=== PATIENT | male | born 1995 | race Caucasian/White ===

== ENCOUNTER 2017-12-25 21:52 | Inpatient (IN) | payer BC ==
[2017-12-25] MEDS ORDERED: LORazepam 2 MG/ML SDV IVPUSH ONE (22:42)
[2017-12-25] MEDS ORDERED: Thiamine 100 MG Tab PO ONE (22:42)
[2017-12-25] MEDS ORDERED: Folic Acid 1 MG Tab PO ONE (22:42)
[2017-12-25] MEDS ORDERED: Sodium Chloride 0.9% 1,000 ML IV SCH (22:45)
--- NOTE | 2017-12-25 22:53 | EDM.PDOC ---
ED HPI GENERAL MEDICAL PROBLEM - General Chief Complaint: Drug or Alcohol Abuse Stated Complaint: would like to detox, possible suicidal Time Seen by Provider: 12/25/17 22:25 Source of Information: Reports: Patient History Limitations: Reports: No Limitations - History of Present Illness INITIAL COMMENTS - FREE TEXT/NARRATIVE: Patient presents this evening with complaints of alcohol withdrawals. He states he last drank Saturday. He states he drinks about 1 L of fireball whiskey on a daily basis. He states that he has been day drinking since he was about the age of 16. By his own admission he has a history of depression and anxiety and is not medicated for either. He does admit to smoking marijuana to help him to deal with his acute anxiety attacks. He does also state that lately he's been thinking that maybe he would be better off not living, but also then states he doesn't have a plan for suicide nor does he have access to any firearms. He is wanting to be admitted inpatient for what withdrawals as well as wanting to have something for his anxiety. He does have shakes, and is anxious. He has no other complaints at this time. He is currently not taking any medications nor does he have any allergies. He does state that at some point he was taking Klonopin for anxiety attacks. He also does state that his parents have somewhat disregarded his complaints of alcoholism. He states the have kind of just told him that he is a college student and its normal for college students to drink. Onset: Gradual Duration: Intermittent - Related Data Allergies Allergy/AdvReac Type Severity Reaction Status Date / Time No Known Allergies Allergy Verified 12/25/17 23:02 Home Meds: Home Meds . [No Known Home Meds] 12/25/17 [History] Past Medical History - Past Health History Medical/Surgical History: Denies Medical/Surgical History Psychiatric History: Reports: Anxiety - Past Surgical History Musculoskeletal Surgical History: Reports: Other (See Below) Social & Family History - Tobacco Use Second Hand Smoke Exposure: No - Alcohol Use Days Per Week of Alcohol Use: 0 ED ROS GENERAL - Review of Systems Review Of Systems: See Below Constitutional: Reports: No Symptoms HEENT: Reports: No Symptoms Respiratory: Reports: No Symptoms Cardiovascular: Reports: No Symptoms Endocrine: Reports: No Symptoms GI/Abdominal: Reports: No Symptoms : Reports: No Symptoms Musculoskeletal: Reports: No Symptoms Skin: Reports: No Symptoms Neurological: Reports: Tremors Psychiatric: Reports: Anxiety Hematologic/Lymphatic: Reports: No Symptoms Immunologic: Reports: No Symptoms ED EXAM, GENERAL - Physical Exam Exam: See Below Exam Limited By: No Limitations General Appearance: Alert, WD/WN, Anxious Eye Exam: Bilateral Eye: EOMI, PERRL Ears: Normal TMs Head: Atraumatic, Normocephalic Neck: Normal Inspection, Supple, Non-Tender, Full Range of Motion Respiratory/Chest: No Respiratory Distress, Lungs Clear, Normal Breath Sounds, No Accessory Muscle Use, Chest Non-Tender Cardiovascular: Normal Peripheral Pulses, Regular Rate, Rhythm, No Edema, No Gallop, No JVD, No Murmur, No Rub GI/Abdominal: Normal Bowel Sounds, Soft, Non-Tender, No Organomegaly, No Distention, No Abnormal Bruit, No Mass Extremities: Normal Inspection, Normal Range of Motion, Non-Tender, Normal Capillary Refill, No Pedal Edema Neurological: Alert, Oriented, CN II-XII Intact, Normal Cognition, Normal Gait, Normal Reflexes, No Motor/Sensory Deficits Psychiatric: Anxious Skin Exam: Warm, Dry, Intact, Normal Color, No Rash Lymphatic: No Adenopathy Course - Re-Assessments/Exams Free Text/Narrative Re-Assessment/Exam: 12/25/17 23:30 Will admit to acute to [facility]. He has been contacted and will see him in the AM Departure - Departure Time of Disposition: 23:58 Disposition: Admitted As Inpatient 66 Condition: Good Clinical Impression: Alcohol withdrawal syndrome, Anxiety EtOH dependence Qualifiers: Substance use status: unspecified alcohol-induced disorder Qualified Code(s): F10.29 - Alcohol dependence with unspecified alcohol-induced disorder - Discharge Information Referrals: PCP,Unknown [Ordering Only Provider] - Forms: ED Department Discharge - Problem List & Annotations (1) EtOH dependence SNOMED Code(s): 94878473 Code(s): F10.20 - ALCOHOL DEPENDENCE, UNCOMPLICATED Status: Acute Priority: Medium Current Visit: Yes Qualifiers: Substance use status: in withdrawal Complication of substance-induced condition: uncomplicated Qualified Code(s): F10.230 - Alcohol dependence with withdrawal, uncomplicated (2) Depression SNOMED Code(s): 55291323 Code(s): F32.9 - MAJOR DEPRESSIVE DISORDER, SINGLE EPISODE, UNSPECIFIED Status: Acute Priority: Medium Current Visit: No Qualifiers: Depression Type: unspecified Qualified Code(s): F32.9 - Major depressive disorder, single episode, unspecified (3) Anxiety SNOMED Code(s): 81733562 Code(s): F41.9 - ANXIETY DISORDER, UNSPECIFIED Status: Acute Priority: Medium Current Visit: Yes (4) Alcohol withdrawal syndrome SNOMED Code(s): 536205541 Code(s): F10.239 - ALCOHOL DEPENDENCE WITH WITHDRAWAL, UNSPECIFIED Status: Acute Priority: Medium Current Visit: Yes Qualifiers: Complication of substance-induced condition: uncomplicated Qualified Code(s ): F10.230 - Alcohol dependence with withdrawal, uncomplicated - Problem List Review Problem List Initiated/Reviewed/Updated: Yes - Assessment/Plan Assessment:: Anxiety Alcohol withdrawal syndrome Plan: 1. Anxiety provide prn ativan start on zoloft for anxiety and depression 2. Alcohol withdrawal hydration oral thiamine and folic acid CIWAA protocol Labs drawn for electrolyte disturbance social consultation oral nutrition
[2017-12-25] MEDS ORDERED: Ondansetron 4 MG Tab.DIS PO PRN (23:34)
[2017-12-25 23:44] LABS: CHLORIDE,CL 104 mmol/L (98-107); SODIUM,NA 144 mmol/L (136-145)
[2017-12-26] MEDS: Lactated Ringers 1,000 ML IV SCH ×4 (00:12→22:02)
[2017-12-26] MEDS: LORazepam 2 MG/ML SDV IVPUSH PRN ×9 (00:25→22:07)
[2017-12-26] MEDS: Sodium Chloride 0.9% 10 ML Syringe FLUSH PRN ×2 (01:30→08:05)
[2017-12-26 07:42] LABS: CHLORIDE,CL 106 mmol/L (98-107); SODIUM,NA 145 mmol/L (136-145)
[2017-12-26] MEDS: Folic Acid 1 MG Tab PO SCH (07:47)
[2017-12-26] MEDS ORDERED: Enoxaparin 30 MG/0.3 ML Syringe SUBCUT SCH (08:00)
[2017-12-26] MEDS ORDERED: Sertraline 25 MG Tab PO SCH (08:00)
[2017-12-26] MEDS: Thiamine 100 MG Tab PO SCH (08:05)
[2017-12-26] MEDS: Pantoprazole 40 MG Vial IVPUSH SCH ×2 (08:06→19:48)
[2017-12-26] MEDS ORDERED: hydrOXYzine HCl 25 MG Tab PO PRN (08:15)
[2017-12-26] MEDS: Acetaminophen 325 MG Tab PO PRN ×2 (10:32→22:08)
--- NOTE | 2017-12-26 10:32 | PCM.HP ---
H&P History of Present Illness - General Date of Service: 12/26/17 Admit Problem/Dx: Admission Diagnosis/Problem Admission Diagnosis/Problem Alcohol withdrawal delirium Acute alcohol intoxication Depression with Anxiety Source of Information: Patient, Old Records, RN, RN Notes Reviewed History Limitations: Reports: No Limitations - History of Present Illness Initial Comments - Free Text/Narative: This patient is seen and examined by me as an [facility] provider. Patient presented to the emergency room at [facility] last evening requesting inpatient admission for acute alcohol withdrawals. According to the patient, the patient has a very long-standing history of alcohol abuse, depression and anxiety. The patient states that he began social drinking when he was in the sixth grade. The patient states his heavy alcohol use did not start until November 23, 2011 due to the of his cousin. The patient states that he has always been a hard liquor drinker. The patient states he does not consume any beer. The patient denies any cigarette smoking. The patient admits to using marijuana on a daily basis. The patient states that his last drink was Saturday. The patient states up until then he was drinking a liter of hard liquor daily for the past 8 days. The patient stopped drinking cold turkey. The patient states the reason for presenting to the emergency room was for the alcohol withdrawal symptoms and he was afraid of "having a seizure." The patient did not have any chest pain or shortness of breath upon admission. The patient did have considerable anxiety with shaking and diaphoresis. The patient did not have any focal neurological deficit. The patient denies any nausea vomiting or diarrhea over the past 24 hours. The patient states that he has vomited blood in the past from his drinking. The patient states that his father is a recovering alcoholic. The patient's father last drank 30 years ago. The patient states that his mother drinks wine socially. The patient is asking to keep this hospital admission confidential as he does not want his parents to find out why he is in the hospital. In reviewing the patient previous medical record, it seems he has been in and out of the clinic with his primary trying to get his depression and anxiety treated. It appears the patient has been noncompliant with treatment modalities from his primary care provider. The patient has been on Lexapro, Zoloft, and Klonopin in the past for his depression and anxiety. It is not clear if these medications have actually worked for the patient as he does not stay on them long enough to get a therapeutic dose. The last time the patient was seen by his primary care provider was April 2017. At that time he was started on Effexor. I do not think the patient is currently taking that medication. It appears that the patient is choosing marijuana over prescription medication for depression and anxiety. Duration of Symptoms: Reports: Chronic - Related Data Allergies/Adverse Reactions: Allergies Allergy/AdvReac Type Severity Reaction Status Date / Time No Known Allergies Allergy Verified 12/25/17 23:02 Home Medications: Home Meds . 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, trauma Psychiatric History: Reports: Addiction (ETOH), Anxiety, Depression, Panic Attack, Other (See Below) (Failure to Thrive in Childhood) Other Psychiatric History: ETOH abuse Social & Family History - Family History Family Medical History: Noncontributory - Tobacco Use Smoking Status *Q: Never Smoker Second Hand Smoke Exposure: No - Caffeine Use Caffeine Use: Reports: None - Alcohol Use Alcohol Use History: Yes Days Per Week of Alcohol Use: 0 Number of Drinks Per Day: 7 Total Drinks Per Week: 0 Date of Last Drink: 12/24/17 Time of Last Drink: 12:00 Alcohol Use in Last Twelve Months: Yes Alcohol Use Frequency: Binges, Daily - Recreational Drug Use Recreational Drug Use: Yes Drug Use in Last 12 Months: Yes Recreational Drug Type: Reports: Marijuana/Hashish Other Recreational Drug Type: marijuana Recreational Drug Use Frequency: Weekly - Living Situation & Occupation Living situation: Reports: Single Occupation: Student H&P Review of Systems - Review of Systems: Review Of Systems: See Below General: Reports: Weakness, Diaphoresis. Denies: Fever, Chills Pulmonary: Denies: Shortness of Breath, Cough Cardiovascular: Denies: Chest Pain, Palpitations Gastrointestinal: Reports: Nausea. Denies: Abdominal Pain, Vomiting Skin: Reports: Diaphoresis Psychiatric: Reports: Depression, Anxiety. Denies: Confusion Neurological: Denies: Dizziness, Headache Exam - Exam Exam: See Below - Vital Signs Vital Signs: Last Vital Signs Temp 36.9 C 12/26/17 09:54 Pulse 98 12/26/17 09:54 Resp 18 12/26/17 09:54 BP 99/42 L 12/26/17 09:54 Pulse Ox 97 03/29/18 09:54 Weight: 98.43 kg - Exam General: Alert, Oriented, Cooperative, Mild Distress Neck: Supple Lungs: Clear to Auscultation, Normal Respiratory Effort Cardiovascular: Regular Rate, Regular Rhythm, Normal S1, Normal S2 GI/Abdominal Exam: Normal Bowel Sounds, Soft, Non-Tender Extremities: Normal Inspection Peripheral Pulses: 2+: Radial (L), Radial (R) Skin: Warm, Intact, Moist Neuro Extensive - Mental Status: Alert, Oriented x3 Psychiatric: Anxious, Depressed, Agitated - Patient Data Lab Results Last 24 hrs: Laboratory Results - last 24 hr 12/25/17 12/25/17 12/25/17 Range/Units 23:10 23:10 23:40 WBC 7.4 (4.0-10.0) x10^3/uL RBC 5.10 (4.5-6.0) x10^6/uL Hgb 16.1 D (14.0-18.0) g/dL Hct 45.3 (40.0-52.0) % MCV 88.8 D (78.0-93.0) fL MCH 31.6 (26.0-32.0) pg MCHC 35.5 (32.0-36.0) g/dL RDW Coeff of Jose 13.0 (10.0-15.0) % Plt Count 314 (130-400) x10^3/uL Neut % (Auto) 41.9 L (50.0-80.0) % Lymph % (Auto) 46.5 (25.0-50.0) % [place] % (Auto) 9.7 (2.0-11.0) % Eos % (Auto) 1.2 (0.0-4.0) % Baso % (Auto) 0.7 (0.2-1.2) % PT (9.8-11.8) SEC INR (2.0-3.5) Sodium 144 (136-145) mmol/L Potassium 3.7 (3.5-5.1) mmol/L Chloride 104 (98-107) mmol/L Carbon Dioxide 26 (21-32) mmol/L BUN 11 (7-18) mg/dL Creatinine 1.1 (0.70-1.30) mg/dL Est Cr Clr Drug Dosing TNP Estimated GFR (MDRD) > 60 Glucose 90 (74-106) mg/dL Calcium 8.7 (8.5-10.1) mg/dL Corrected Calcium 8.46 L (8.5-10.1) mg/dL Magnesium (1.8-2.4) mg/dL Total Bilirubin 0.7 (0.2-1.0) mg/dL Direct Bilirubin (0.00-0.20) mg/dL AST 28 (15-37) U/L ALT 37 (16-63) U/L Alkaline Phosphatase 69 (46-116) U/L C-Reactive Protein < 0.2 (<=0.9) mg/dL Total Protein 8.1 (6.4-8.2) g/dL Albumin 4.3 (3.4-5.0) g/dL Globulin 3.8 Albumin/Globulin Ratio 1.13 TSH, Ultra Sensitive 2.259 (0.358-3.74) uIU/mL Urine Opiates Screen Negative (NEGATIVE) Ur Buprenorphine Scrn Negative (NEGATIVE) Ur Oxycodone Screen Negative (NEGATIVE) Urine Methadone Screen Negative (NEGATIVE) Ur Barbituates Screen Negative (NEGATIVE) Ur Tricyclics Screen Negative (NEGATIVE) Ur Amphetamines Screen Negative (NEGATIVE) U Methamphetamines Scrn Negative (NEGATIVE) Urine MDMA Screen Negative (NEGATIVE) U Benzodiazepines Scrn Negative (NEGATIVE) Urine Cocaine Screen Negative (NEGATIVE) U Marijuana (THC) Screen Positive H (NEGATIVE) Ethyl Alcohol (0-3) mg/dL 12/26/17 12/26/17 12/26/17 Range/Units 06:15 06:15 06:15 WBC 6.4 (4.0-10.0) x10^3/uL RBC 4.41 L (4.5-6.0) x10^6/uL Hgb 13.8 L D (14.0-18.0) g/dL Hct 40.4 (40.0-52.0) % MCV 91.6 (78.0-93.0) fL MCH 31.3 (26.0-32.0) pg MCHC 34.2 (32.0-36.0) g/dL RDW Coeff of Jose 13.0 (10.0-15.0) % Plt Count 284 (130-400) x10^3/uL Neut % (Auto) 40.6 L (50.0-80.0) % Lymph % (Auto) 49.5 (25.0-50.0) % [place] % (Auto) 7.9 (2.0-11.0) % Eos % (Auto) 1.4 (0.0-4.0) % Baso % (Auto) 0.6 (0.2-1.2) % PT 11.0 (9.8-11.8) SEC INR 1.0 L (2.0-3.5) Sodium 145 (136-145) mmol/L Potassium 4.1 (3.5-5.1) mmol/L Chloride 106 (98-107) mmol/L Carbon Dioxide 28 (21-32) mmol/L BUN 10 (7-18) mg/dL Creatinine 1.1 (0.70-1.30) mg/dL Est Cr Clr Drug Dosing 115.62 Estimated GFR (MDRD) > 60 Glucose 83 (74-106) mg/dL Calcium 8.0 L (8.5-10.1) mg/dL Corrected Calcium (8.5-10.1) mg/dL Magnesium (1.8-2.4) mg/dL Total Bilirubin 0.8 (0.2-1.0) mg/dL Direct Bilirubin 0.17 (0.00-0.20) mg/dL AST 24 (15-37) U/L ALT 29 (16-63) U/L Alkaline Phosphatase 56 (46-116) U/L C-Reactive Protein (<=0.9) mg/dL Total Protein 6.5 (6.4-8.2) g/dL Albumin 3.5 (3.4-5.0) g/dL Globulin 3.0 Albumin/Globulin Ratio 1.17 TSH, Ultra Sensitive (0.358-3.74) uIU/mL Urine Opiates Screen (NEGATIVE) Ur Buprenorphine Scrn (NEGATIVE) Ur Oxycodone Screen (NEGATIVE) Urine Methadone Screen (NEGATIVE) Ur Barbituates Screen (NEGATIVE) Ur Tricyclics Screen (NEGATIVE) Ur Amphetamines Screen (NEGATIVE) U Methamphetamines Scrn (NEGATIVE) Urine MDMA Screen (NEGATIVE) U Benzodiazepines Scrn (NEGATIVE) Urine Cocaine Screen (NEGATIVE) U Marijuana (THC) Screen (NEGATIVE) Ethyl Alcohol (0-3) mg/dL 12/26/17 Range/Units 06:15 WBC (4.0-10.0) x10^3/uL RBC (4.5-6.0) x10^6/uL Hgb (14.0-18.0) g/dL Hct (40.0-52.0) % MCV (78.0-93.0) fL MCH (26.0-32.0) pg MCHC (32.0-36.0) g/dL RDW Coeff of Jose (10.0-15.0) % Plt Count (130-400) x10^3/uL Neut % (Auto) (50.0-80.0) % Lymph % (Auto) (25.0-50.0) % [place] % (Auto) (2.0-11.0) % Eos % (Auto) (0.0-4.0) % Baso % (Auto) (0.2-1.2) % PT (9.8-11.8) SEC INR (2.0-3.5) Sodium (136-145) mmol/L Potassium (3.5-5.1) mmol/L Chloride (98-107) mmol/L Carbon Dioxide (21-32) mmol/L BUN (7-18) mg/dL Creatinine (0.70-1.30) mg/dL Est Cr Clr Drug Dosing Estimated GFR (MDRD) Glucose (74-106) mg/dL Calcium (8.5-10.1) mg/dL Corrected Calcium (8.5-10.1) mg/dL Magnesium 2.0 (1.8-2.4) mg/dL Total Bilirubin (0.2-1.0) mg/dL Direct Bilirubin (0.00-0.20) mg/dL AST (15-37) U/L ALT (16-63) U/L Alkaline Phosphatase (46-116) U/L C-Reactive Protein (<=0.9) mg/dL Total Protein (6.4-8.2) g/dL Albumin (3.4-5.0) g/dL Globulin Albumin/Globulin Ratio TSH, Ultra Sensitive (0.358-3.74) uIU/mL Urine Opiates Screen (NEGATIVE) Ur Buprenorphine Scrn (NEGATIVE) Ur Oxycodone Screen (NEGATIVE) Urine Methadone Screen (NEGATIVE) Ur Barbituates Screen (NEGATIVE) Ur Tricyclics Screen (NEGATIVE) Ur Amphetamines Screen (NEGATIVE) U Methamphetamines Scrn (NEGATIVE) Urine MDMA Screen (NEGATIVE) U Benzodiazepines Scrn (NEGATIVE) Urine Cocaine Screen (NEGATIVE) U Marijuana (THC) Screen (NEGATIVE) Ethyl Alcohol 207 H (0-3) mg/dL Result Diagrams: 12/26/17 06:15 12/26/17 06:15 *Q Meaningful Use (ADM) - VTE *Q VTE Mechanical Contraindications *Q: At Risk for Falls - Problem List (1) Acute alcohol intoxication SNOMED Code(s): 32783544 ICD Code: F10.929 - ALCOHOL USE, UNSPECIFIED WITH INTOXICATION, UNSPECIFIED Status: Acute Priority: Medium Current Visit: Yes Qualifiers: Complication of substance-induced condition: uncomplicated Qualified Code(s ): F10.929 - Alcohol use, unspecified with intoxication, unspecified (2) Alcohol withdrawal syndrome SNOMED Code(s): 251938848 ICD Code: F10.239 - ALCOHOL DEPENDENCE WITH WITHDRAWAL, UNSPECIFIED Status : Acute Priority: Medium Current Visit: Yes Qualifiers: Complication of substance-induced condition: uncomplicated Qualified Code(s ): F10.230 - Alcohol dependence with withdrawal, uncomplicated (3) Depression SNOMED Code(s): 73106772 ICD Code: F32.9 - MAJOR DEPRESSIVE DISORDER, SINGLE EPISODE, UNSPECIFIED Status: Chronic Priority: Medium Current Visit: No Qualifiers: Depression Type: major depressive disorder Major depression recurrence: recurrent Active/Remission status: currently active Major depression episode severity: moderate Qualified Code(s): F33.1 - Major depressive disorder, recurrent, moderate (4) Anxiety SNOMED Code(s): 03215500 ICD Code: F41.9 - ANXIETY DISORDER, UNSPECIFIED Status: Chronic Priority : Medium Current Visit: No (5) EtOH dependence SNOMED Code(s): 83362120 ICD Code: F10.20 - ALCOHOL DEPENDENCE, UNCOMPLICATED Status: Chronic Priority: Medium Current Visit: Yes Qualifiers: Substance use status: in withdrawal Complication of substance-induced condition: uncomplicated Qualified Code(s): F10.230 - Alcohol dependence with withdrawal, uncomplicated (6) Marijuana abuse SNOMED Code(s): 98741330 ICD Code: F12.10 - CANNABIS ABUSE, UNCOMPLICATED Status: Chronic Priority : Medium Current Visit: No Problem List Initiated/Reviewed/Updated: Yes Orders Last 24hrs: Active Orders 24 hr Category Date Time Status Patient Status [ADT] Routine ADT 12/26/17 07:25 Active Ambulate [RC] PER UNIT ROUTINE Care 12/25/17 23:35 Inactive CIWAA Assessment [RC] Q15M Care 12/26/17 00:17 Inactive CIWAA Assessment [RC] Q1H Care 12/25/17 23:37 Active CIWAA Assessment [RC] Q1H Care 12/25/17 23:37 Inactive CIWAA Assessment [RC] Q30M Care 12/26/17 00:17 Inactive Cardiac Monitoring [RC] CONTINUOUS Care 12/25/17 23:35 Active Height and Weight [RC] .PRN Care 12/26/17 07:25 Active Intake and Output [RC] 06,18 Care 12/26/17 07:26 Active May Shower [RC] ASDIRECTED Care 12/26/17 07:25 Active Notify Provider [RC] PRN Care 12/25/17 23:38 Active Notify Provider [RC] PRN Care 12/26/17 00:17 Active Oxygen Therapy [RC] .PRN Care 12/25/17 23:34 Active Oxygen Therapy [RC] PRN Care 12/26/17 07:25 Inactive Up ad Heather [RC] ASDIRECTED Care 12/25/17 23:34 Active VTE/DVT Education [RC] .PRN Care 12/25/17 23:34 Active VTE/DVT Education [RC] PER UNIT ROUTINE Care 12/26/17 07:25 Inactive Vital Signs [RC] 06,10,14,18,22,02 Care 12/25/17 23:34 Active Consult to Operations Accountant [CONS] Routine Cons 12/25/17 23:34 Active CARBOXY-THC BY GC/MS Routine Lab 12/25/17 23:40 Received Acetaminophen [Tylenol] Med 12/26/17 07:25 Active 650 mg PO Q4H PRN Enoxaparin [Lovenox] Med 12/26/17 20:00 Active 30 mg SUBCUT BID Folic Acid Med 12/26/17 08:00 Active 1 mg PO DAILY LORazepam [Ativan] Med 12/26/17 00:37 Active 1 - 2 mg IVPUSH Q1H PRN Lactated Ringers [Ringers, Lactated] 1,000 ml Med 12/25/17 23:45 Active IV ASDIRECTED Ondansetron [Zofran ODT] Med 12/25/17 23:34 Active 4 mg PO Q4H PRN Pantoprazole [ProTONIX IV] Med 12/26/17 08:00 Active 40 mg IVPUSH Q12H Sodium Chloride 0.9% [Saline Flush] Med 12/25/17 22:42 Active 10 ml FLUSH ASDIRECTED PRN Thiamine [Vitamin B-1] Med 12/26/17 08:00 Active 100 mg PO DAILY hydrOXYzine HCl [Atarax] Med 12/26/17 08:15 Active 25 mg PO Q8H PRN Saline Lock Insert [OM.PC] Routine Oth 12/25/17 22:42 Ordered Sequential Compression Device [OM.PC] Per Unit Routine Oth 12/25/17 23:35 Ordered Resuscitation Status Routine Resus Stat 12/25/17 23:34 Ordered Medication Orders Acetaminophen (Tylenol) 650 mg PO Q4H PRN PRN Reason: Pain (Mild 1-3)/fever Enoxaparin Sodium (Lovenox) 30 mg SUBCUT BID [facility] Folic Acid (Folic Acid) 1 mg PO DAILY [facility] Last Admin: 12/26/17 07:47 Dose: 1 mg Hydroxyzine HCl (Atarax) 25 mg PO Q8H PRN PRN Reason: Anxiety Lactated Ringer's (Ringers, Lactated) 1,000 mls @ 125 mls/hr IV ASDIRECTED JUDE Last Admin: 12/26/17 07:36 Dose: 125 mls/hr Infusion: 12/26/17 07:36 Dose: 125 mls/hr Admin: 12/26/17 00:12 Dose: 125 mls/hr Lorazepam (Ativan) 1 - 2 mg IVPUSH Q1H PRN PRN Reason: Anxiety Last Admin: 12/26/17 08:09 Dose: 1 mg Admin: 12/26/17 06:54 Dose: 1 mg Admin: 12/26/17 01:28 Dose: 2 mg Admin: 12/26/17 00:25 Dose: 1 mg Ondansetron HCl (Zofran Odt) 4 mg PO Q4H PRN PRN Reason: nausea, able to take PO Last Admin: 12/26/17 07:47 Dose: 4 mg Pantoprazole Sodium (Protonix Iv) 40 mg IVPUSH Q12H [facility] Last Admin: 12/26/17 08:06 Dose: 40 mg Sodium Chloride (Saline Flush) 10 ml FLUSH ASDIRECTED PRN PRN Reason: Keep Vein Open Last Admin: 12/26/17 08:05 Dose: 10 ml Admin: 12/26/17 01:30 Dose: 10 ml Thiamine HCl (Vitamin B-1) 100 mg PO DAILY [facility] Last Admin: 12/26/17 08:05 Dose: 100 mg Assessment/Plan Comment:: 22-year-old male patient with a past medical history of depression, anxiety, chronic alcohol abuse, and cannabis drug use is admitted to the acute care floor at [facility] for acute alcohol intoxication, alcohol withdrawal syndrome, depression, and anxiety. Given the patient's current alcohol level of 0.207, we will do CIWAA every hour until the patient's withdrawal symptoms start to improve. The patient will have when necessary Ativan and hydroxyzine for withdrawal symptoms and anxiety. I will discontinue the Zoloft during this acute phase. May consider starting clonidine 0.1 mg if the patient's blood pressure becomes elevated. May also consider naltrexone for cravings should they become uncontrolled. We'll continue IV fluids at the current rate for good hydration. The patient wishes to be a full code. The patient does wish to be transferred to a higher level of care should the need arise. I do anticipate the patient's acute stay to be greater than 48 hours given that he still has alcohol on board. The patient's depression and anxiety will need to be re-assessed once he is 30 days sober. No antidepressant treatment is warranted at this time while he is taking Ativan and hydroxyzine. Need to discern whether the patient has hypersomnia or insomnia. If the patient is hypersomnic he would need to be started on Prozac. If the patient has insomnia he may benefit from Paxil. In visiting with the patient today, he does not appear to be very motivated for alcohol treatment. Also, given the patient's history over the past couple years and noncompliance with antidepressant medication regimen and counseling I am not very well encouraged at this point that the patient will be successful with his sobriety. We will continue to assess the patient on a daily basis while he is admitted in the hospital. It is my hope that the patient will except outpatient treatment for his alcoholism and also start attending psychotherapy on a regular basis. Note: This patient was seen and examined by me as an [facility] provider.
[2017-12-26] MEDS: Enoxaparin 30 MG/0.3 ML Syringe SUBCUT SCH (19:48)
[2017-12-27 07:33] LABS: CHLORIDE,CL 105 mmol/L (98-107); SODIUM,NA 144 mmol/L (136-145)
[2017-12-27] MEDS: Thiamine 100 MG Tab PO SCH (07:44)
[2017-12-27] MEDS: Folic Acid 1 MG Tab PO SCH (07:44)
--- NOTE | 2017-12-27 07:44 | PCM.DCSUM1 ---
Discharge Summary - Hospital Course HPI Initial Comments: This patient was seen and examined by me as an [facility] provider. Patient presented to the emergency room two night ago at [facility] requesting inpatient admission for acute alcohol withdrawals. According to the patient, the patient has a very long-standing history of alcohol abuse, depression and anxiety. The patient states that he began social drinking when he was in the sixth grade. The patient states his heavy alcohol use did not start until November 23, 2011 due to the of his cousin. The patient states that he has always been a hard liquor drinker. The patient states he does not consume any beer. The patient denies any cigarette smoking. The patient admits to using marijuana on a daily basis. The patient states that his last drink was Saturday morning. The patient states up until then he was drinking a liter of hard liquor daily for the past 8 days. The patient stopped drinking cold turkey. The patient states the reason for presenting to the emergency room was for the alcohol withdrawal symptoms and he was afraid of "having a seizure." The patient did not have any chest pain or shortness of breath upon admission. The patient did have considerable anxiety with shaking and diaphoresis. The patient did not have any focal neurological deficit. The patient denies any nausea vomiting or diarrhea over the past 24 hours. The patient states that he has vomited blood in the past from his drinking. No seizure activity. The patient states that his father is a recovering alcoholic. The patient's father last drank 30 years ago. The patient states that his mother drinks wine socially. The patient is asking to keep this hospital admission confidential as he does not want his parents to find out why he is in the hospital. In reviewing the patient previous medical record, it seems he has been in and out of the clinic with his primary trying to get his depression and anxiety treated. It appears the patient has been noncompliant with treatment modalities from his primary care provider. The patient has been on Lexapro, Zoloft, and Klonopin in the past for his depression and anxiety. It is not clear if these medications have actually worked for the patient as he does not stay on them long enough to get a therapeutic dose. The last time the patient was seen by his primary care provider was April 2017. At that time he was started on Effexor. I do not think the patient is currently taking that medication. It appears that the patient is choosing marijuana over prescription medication for depression and anxiety - Discharge Data Discharge Date: 12/27/17 Discharge Disposition: Home, Self-Care 01 Condition: Good - Discharge Diagnosis/Problem(s) (1) Acute alcohol intoxication SNOMED Code(s): 61668370 ICD Code: F10.929 - ALCOHOL USE, UNSPECIFIED WITH INTOXICATION, UNSPECIFIED Status: Acute Priority: Medium Current Visit: Yes Qualifiers: Complication of substance-induced condition: uncomplicated Qualified Code(s ): F10.929 - Alcohol use, unspecified with intoxication, unspecified (2) Alcohol withdrawal syndrome SNOMED Code(s): 735686282 ICD Code: F10.239 - ALCOHOL DEPENDENCE WITH WITHDRAWAL, UNSPECIFIED Status : Acute Priority: Medium Current Visit: Yes Qualifiers: Complication of substance-induced condition: uncomplicated Qualified Code(s ): F10.230 - Alcohol dependence with withdrawal, uncomplicated (3) Depression SNOMED Code(s): 85424572 ICD Code: F32.9 - MAJOR DEPRESSIVE DISORDER, SINGLE EPISODE, UNSPECIFIED Status: Chronic Priority: Medium Current Visit: No Qualifiers: Depression Type: major depressive disorder Major depression recurrence: recurrent Active/Remission status: currently active Major depression episode severity: moderate Qualified Code(s): F33.1 - Major depressive disorder, recurrent, moderate (4) Anxiety SNOMED Code(s): 55457050 ICD Code: F41.9 - ANXIETY DISORDER, UNSPECIFIED Status: Chronic Priority : Medium Current Visit: No (5) EtOH dependence SNOMED Code(s): 82827864 ICD Code: F10.20 - ALCOHOL DEPENDENCE, UNCOMPLICATED Status: Chronic Priority: Medium Current Visit: Yes Qualifiers: Substance use status: in withdrawal Complication of substance-induced condition: uncomplicated Qualified Code(s): F10.230 - Alcohol dependence with withdrawal, uncomplicated (6) Marijuana abuse SNOMED Code(s): 68252919 ICD Code: F12.10 - CANNABIS ABUSE, UNCOMPLICATED Status: Chronic Priority : Medium Current Visit: No - Patient Summary/Data Operative Procedure(s) Performed: None Consults: Consultations 12/25/17 23:34 Consult to [employer] Developer [CONS] Routine Labs Pending at D/C: None Hospital Course: Patient remained afebrile and hemodynamicaly stable during his acute care stay. Patient did request a fair amount of Ativan for anxiety. He had not issues with urination or BM's. Patient tolerated diet ok. No issues with DT's or seizures. - Patient Instructions Diet: Heart Healthy Diet Activity: No Strenuous Activities, Rest and Relax Today Driving: Do Not Drive Showering/Bathing: May Shower Notify Provider of: Fever, Nausea and/or Vomiting Other/Special Instructions: Do not drink alcohol - Discharge Plan Prescriptions/Med Rec: hydrOXYzine HCl [hydrOXYzine] 1 tab PO Q8H PRN 7 Days #21 tablet PRN Reason: Anxiety Venlafaxine HCl [Venlafaxine ER] 1 cap PO DAILY 10 Days #10 cap.er.24h Home Medications: Home Meds Venlafaxine HCl [Venlafaxine ER] 1 cap PO DAILY 10 Days #10 cap.er.24h 12/27/17 [Rx] hydrOXYzine HCl [hydrOXYzine] 1 tab PO Q8H PRN 7 Days #21 tablet 12/27/17 [Rx] Patient Handouts: Addiction and the Family, Alcohol Use Disorder, Alcohol Withdrawal Referrals: Nora Izaguirre DO [Primary Care Provider] - (Follow up with PCP next week for a hospital discharge follow up. Nursing staff will call you with a date/time. ) - Discharge Summary/Plan Comment DC Time >30 min.: Yes Discharge Summary/Plan Comment: Patient will be discharged home today. Will restart patient on Effexor and start a new prescription of Hydroxyzine for anxiety. Strongly encourage patient to follow up with his PCP next week. Had a long discussion with patient regarding alcohol treatment. He continues to decline the need. - General Info Date of Service: 12/27/17 Admission Dx/Problem (Free Text: Admission Diagnosis/Problem Admission Diagnosis/Problem Alcohol withdrawal delirium Acute alcohol intoxication Depression with Anxiety Cannabis use Functional Status: Reports: Pain Controlled, Tolerating Diet, Ambulating, Urinating Numeric/FACES Score: 0 - Review of Systems General: Denies: Fever, Weakness Pulmonary: Denies: Shortness of Breath, Cough Cardiovascular: Denies: Chest Pain, Palpitations Gastrointestinal: Denies: Abdominal Pain, Nausea, Vomiting Skin: Reports: No Symptoms Neurological: Denies: Dizziness, Headache Psychiatric: Reports: Anxiety - Patient Data Vitals - Most Recent: Last Vital Signs Temp 36.2 C 12/27/17 05:55 Pulse 83 03/30/18 05:55 Resp 16 12/27/17 05:55 BP 118/62 12/27/17 05:55 Pulse Ox 96 12/27/17 05:55 Weight - Most Recent: 98.43 kg I&O - Last 24 hours: Intake & Output 12/26/17 12/27/17 12/27/17 22:59 06:59 14:59 Intake Total 1380 2094 218 Output Total 1390 300 Balance -10 8444 218 Lab Results - Last 24 hrs: Laboratory Results - last 24 hr 12/26/17 12/26/17 12/27/17 Range/Units 06:15 06:15 06:50 WBC 6.1 (4.0-10.0) x10^3/uL RBC 4.26 L (4.5-6.0) x10^6/uL Hgb 13.3 L (14.0-18.0) g/dL Hct 39.6 L (40.0-52.0) % MCV 93.0 (78.0-93.0) fL MCH 31.2 (26.0-32.0) pg MCHC 33.6 (32.0-36.0) g/dL RDW Coeff of Jose 12.7 (10.0-15.0) % Plt Count 219 (130-400) x10^3/uL Neut % (Auto) 38.7 L (50.0-80.0) % Lymph % (Auto) 46.6 (25.0-50.0) % [place] % (Auto) 10.9 (2.0-11.0) % Eos % (Auto) 2.8 (0.0-4.0) % Baso % (Auto) 1.0 (0.2-1.2) % Sodium 145 (136-145) mmol/L Potassium 4.1 (3.5-5.1) mmol/L Chloride 106 (98-107) mmol/L Carbon Dioxide 28 (21-32) mmol/L BUN 10 (7-18) mg/dL Creatinine 1.1 (0.70-1.30) mg/dL Est Cr Clr Drug Dosing 115.62 mL/min Estimated GFR (MDRD) > 60 Glucose 83 (74-106) mg/dL Calcium 8.0 L (8.5-10.1) mg/dL Magnesium 2.0 (1.8-2.4) mg/dL Total Bilirubin 0.8 (0.2-1.0) mg/dL Direct Bilirubin 0.17 (0.00-0.20) mg/dL AST 24 (15-37) U/L ALT 29 (16-63) U/L Alkaline Phosphatase 56 (46-116) U/L Total Protein 6.5 (6.4-8.2) g/dL Albumin 3.5 (3.4-5.0) g/dL Globulin 3.0 Albumin/Globulin Ratio 1.17 Ethyl Alcohol 207 H (0-3) mg/dL 12/27/17 Range/Units 06:50 WBC (4.0-10.0) x10^3/uL RBC (4.5-6.0) x10^6/uL Hgb (14.0-18.0) g/dL Hct (40.0-52.0) % MCV (78.0-93.0) fL MCH (26.0-32.0) pg MCHC (32.0-36.0) g/dL RDW Coeff of Jose (10.0-15.0) % Plt Count (130-400) x10^3/uL Neut % (Auto) (50.0-80.0) % Lymph % (Auto) (25.0-50.0) % [place] % (Auto) (2.0-11.0) % Eos % (Auto) (0.0-4.0) % Baso % (Auto) (0.2-1.2) % Sodium 144 (136-145) mmol/L Potassium 3.5 (3.5-5.1) mmol/L Chloride 105 (98-107) mmol/L Carbon Dioxide 29 (21-32) mmol/L BUN 8 (7-18) mg/dL Creatinine 1.2 (0.70-1.30) mg/dL Est Cr Clr Drug Dosing 105.98 mL/min Estimated GFR (MDRD) > 60 Glucose 88 (74-106) mg/dL Calcium 8.7 (8.5-10.1) mg/dL Magnesium (1.8-2.4) mg/dL Total Bilirubin (0.2-1.0) mg/dL Direct Bilirubin (0.00-0.20) mg/dL AST (15-37) U/L ALT (16-63) U/L Alkaline Phosphatase (46-116) U/L Total Protein (6.4-8.2) g/dL Albumin (3.4-5.0) g/dL Globulin Albumin/Globulin Ratio Ethyl Alcohol < 3 (0-3) mg/dL Med Orders - Current: Current Medications Acetaminophen (Tylenol) 650 mg PO Q4H PRN PRN Reason: Pain (Mild 1-3)/fever Last Admin: 12/26/17 22:08 Dose: 650 mg Enoxaparin Sodium (Lovenox) 30 mg SUBCUT BID [facility] Last Admin: 12/26/17 19:48 Dose: 30 mg Folic Acid (Folic Acid) 1 mg PO DAILY [facility] Last Admin: 12/26/17 07:47 Dose: 1 mg Hydroxyzine HCl (Atarax) 25 mg PO Q8H PRN PRN Reason: Anxiety Last Admin: 12/26/17 22:08 Dose: 25 mg Lactated Ringer's (Ringers, Lactated) 1,000 mls @ 125 mls/hr IV ASDIRECTED [facility] Last Admin: 12/26/17 22:02 Dose: 125 mls/hr Lorazepam (Ativan) 1 - 2 mg IVPUSH Q1H PRN PRN Reason: Anxiety Last Admin: 12/26/17 22:07 Dose: 1 mg Ondansetron HCl (Zofran Odt) 4 mg PO Q4H PRN PRN Reason: nausea, able to take PO Last Admin: 12/26/17 07:47 Dose: 4 mg Pantoprazole Sodium (Protonix Iv) 40 mg IVPUSH Q12H [facility] Last Admin: 12/26/17 19:48 Dose: 40 mg Sodium Chloride (Saline Flush) 10 ml FLUSH ASDIRECTED PRN PRN Reason: Keep Vein Open Last Admin: 12/26/17 08:05 Dose: 10 ml Thiamine HCl (Vitamin B-1) 100 mg PO DAILY [facility] Last Admin: 12/26/17 08:05 Dose: 100 mg Discontinued Medications Enoxaparin Sodium (Lovenox) 30 mg SUBCUT DAILY [facility] Last Admin: 12/26/17 07:47 Dose: 30 mg Folic Acid (Folic Acid) 1 mg PO ONETIME ONE Stop: 03/28/18 22:43 Last Admin: 12/25/17 23:35 Dose: 1 mg Sodium Chloride (Normal Saline) 1,000 mls @ 150 mls/hr IV ASDIRECTED [facility] Last Admin: 12/25/17 23:15 Dose: 150 mls/hr Lorazepam (Ativan) 1 mg IVPUSH ONETIME ONE Stop: 12/25/17 22:43 Last Admin: 12/25/17 23:15 Dose: 0.5 ml Sertraline HCl (Zoloft) 25 mg PO DAILY [facility] Last Admin: 12/26/17 07:47 Dose: 25 mg Thiamine HCl (Vitamin B-1) 100 mg PO ONETIME ONE Stop: 12/25/17 22:43 Last Admin: 12/25/17 23:35 Dose: 100 mg - Exam General: Reports: Alert, Oriented, Cooperative, No Acute Distress HEENT: Reports: Pupils Equal, Pupils Reactive Lungs: Reports: Clear to Auscultation, Normal Respiratory Effort Cardiovascular: Reports: Regular Rate, Regular Rhythm, No Murmurs GI/Abdominal Exam: Normal Bowel Sounds, Soft, Non-Tender Skin: Reports: Warm, Dry, Intact Neurological: Reports: No New Focal Deficit, Normal Speech *Q Meaningful Use (DIS) - VTE *Q VTE Criteria *Q: No risk for falls at time of discharge
[2017-12-27] MEDS: Pantoprazole 40 MG Vial IVPUSH SCH (07:45)
[2017-12-27] MEDS: Enoxaparin 30 MG/0.3 ML Syringe SUBCUT SCH (07:45)
== END 2017-12-27 08:15 | disposition home or self-care (01) | DRG 775 ==
LOC: EEVIPCON 21:52 → VM.ED 21:52 → VM.MS 22:54
PROVIDERS: ADMIT Nurse Practitioner Family; ATTEND Nurse Practitioner Family
DX: F10.239 Alcohol dependence with withdrawal, unspecified (principal); F41.8 Other specified anxiety disorders; F12.10 Cannabis abuse, uncomplicated; F10.229 Alcohol dependence with intoxication, unspecified; F41.0 Panic disorder [episodic paroxysmal anxiety]; Z91.14 Patient's other noncompliance with medication regimen
CPT/HCPCS: 36415; 80048; 80053; 80076; 80305; 80349; 83735; 84443; 85025; 85610; 86140; 96361; 96374; 99285; A9270-GY; C9113; G0480; J1650; J2060; J7030; J7050; J7120